=== PATIENT | male | born 1975 | race Caucasian/White ===

== ENCOUNTER 2017-02-28 10:47 | Inpatient (IN) | payer MEDICAID, OTHER ==
[~2017-02-28] VITALS: Ht 172.7 cm; Wt 119.6 kg
[2017-02-28] MEDS ORDERED: CLON.2 PO (11:27)
[2017-02-28] MEDS ORDERED: BUSP15 PO (11:27)
[2017-02-28] MEDS ORDERED: METO25 PO (11:27)
[2017-02-28] MEDS ORDERED: QUET100T PO (11:27)
[2017-02-28] MEDS ORDERED: AMLO-511 PO (11:27)
[2017-02-28 11:42] LABS: AMPHET/METH SCREEN,URINE NEGATIVE (NEGATIVE); BARBITURATE SCREEN, URINE NEGATIVE (NEGATIVE); BENZODIAZEPINES SCREEN,URINE NEGATIVE (NEGATIVE); CANNABINOID SCREEN,URINE NEGATIVE (NEGATIVE); COCAINE SCREEN,URINE NEGATIVE (NEGATIVE); METHADONE SCREEN, URINE POSITIVE (NEGATIVE); OPIATE SCREEN,URINE NEGATIVE (NEGATIVE); PHENCYCLIDINE SCREEN,URINE NEGATIVE (NEGATIVE)
[2017-02-28 12:20] LABS: ANION GAP 5 mmol/L (8-16); CALCIUM, TOTAL 8.8 mg/dL (8.8-10.5); CARBON DIOXIDE 28 mmol/L (22-29); CHLORIDE 106 mmol/L (98-107); CREATININE 0.77 mg/dL (0.60-1.30); GLOMERULAR FILTR. RATE CALC > 60 mL/min (>60); GLUCOSE,RANDOM 93 mg/dL (70-110); POTASSIUM 3.7 mmol/L (3.5-5.1); SODIUM SERUM 139 mmol/L (136-145); UREA NITROGEN, BLOOD 8 mg/dL (7-18)
[2017-02-28 12:23] LABS: BASOPHILS % (AUTO) 0.5 % (0.0-2.0); EOSINOPHILS % (AUTO) 2.3 % (1.0-6.0); HEMATOCRIT 39.3 % (41-53); HEMOGLOBIN 13.2 g/dL (13.5-17.5); LYMPHOCYTES # (AUTO) 2.5 K/uL (1.0-4.8); LYMPHOCYTES % (AUTO) 27.5 % (22.0-44.0); MEAN CORPUSCULAR HEMOGLOBIN 29.3 pg (26.0-34.0); MEAN CORPUSCULAR HGB CONC 33.5 G/dL (31.0-37.0); MEAN CORPUSCULAR VOLUME 87 fL (80-100); MONOCYTES # (AUTO) 0.5 K/uL (0.1-1.0); MONOCYTES % (AUTO) 5.6 % (2.0-9.0); NEUTROPHILS # (AUTO) 5.9 K/uL (1.8-7.7); NEUTROPHILS % (AUTO) 64.1 % (40.0-70.0); PLATELET COUNT (AUTO) 337 K/uL (150-450); RED BLOOD CELL COUNT(AUTO) 4.49 MIL/uL (4.50-5.90); RED CELL DISTRIBUTION WIDTH 15.4 % (11.5-14.5)
[2017-02-28 12:25] LABS: ALANINE AMINOTRANSFERASE 82 U/L (12-78); ALBUMIN 3.5 g/dL (3.4-5.0); ALKALINE PHOSPHATASE 70 U/L (46-116); ASPARTATE AMINOTRANSFERASE 94 U/L (15-37); BILIRUBIN,TOTAL 0.2 mg/dL (0.1-1.0); TOTAL PROTEIN, SERUM 6.8 g/dL (6.4-8.2)
[2017-02-28 12:26] LABS: SALICYLATE 1.2 mg/dL (2.8-20.0)
[2017-02-28 12:29] LABS: ACETAMINOPHEN < 2 mcg/mL (10-30)
[2017-02-28] MEDS ORDERED: HALOPERIDOL 5 MG TABLET PO ONE (13:15)
[2017-02-28] MEDS ORDERED: LORazepam 1 MG TABLET PO ONE (13:15)
[2017-02-28] MEDS ORDERED: LORazepam 2 MG/ML VIAL IM ONE (13:30)
[2017-02-28] MEDS ORDERED: HALOPERIDOL LACTATE 5 MG/ML VIAL IM ONE (13:30)
[2017-02-28] MEDS ORDERED: DiphenhydrAMINE HCL 50 MG/ML VIAL IM ONE (13:30)
[2017-02-28] MEDS ORDERED: HALOPERIDOL 5 MG TABLET PO PRN (14:45)
[2017-02-28 15:38] LABS: CHOL/HDL RATIO 4.5 (4.2-7.3); CHOLESTEROL 170 mg/dL (131-200); FREE T4 (FREE THYROXINE) 1.28 ng/dL (0.76-1.46); HDL CHOLESTEROL 38 mg/dL (40-60); LDL CHOL (CALC.) 111 mg/dL (0-130); THYROID STIMULATING HORMONE 0.89 uIU/mL (0.36-3.74); TRIGLYCERIDES 107 mg/dL (15-150)
[2017-02-28 16:21] VITALS: BP 112/79
[2017-02-28] MEDS ORDERED: INFLUENZA VIRUS VACCINE QVS 2017-18 (3YR+)/PF 60 MCG/0.5 ML SYRINGE IM ONE (17:30)
[2017-02-28] MEDS ORDERED: CloNIDine HCL 0.1 MG TABLET PO PRN (17:30)
[2017-02-28] MEDS ORDERED: PNEUMOCOCCAL VACCINE POLYVALENT 0.5 ML VIAL [PPSV23] IM ONE (17:30)
[2017-02-28] MEDS: ZOLPIDEM TARTRATE 10 MG TABLET PO PRN (20:28)
[2017-02-28] MEDS: LORazepam 2 MG TABLET PO PRN (20:28)
[2017-03-01 06:21] VITALS: BP 118/76
[2017-03-01 08:48] VITALS: BP 122/80
[2017-03-01] MEDS: METOPROLOL TARTRATE 25 MG TABLET PO SCH ×2 (10:05→16:34)
[2017-03-01] MEDS: AmLODIPine BESYLATE 5 MG TABLET PO SCH (10:09)
[2017-03-01 16:00] VITALS: BP 124/66
[2017-03-01] MEDS: QUEtiapine FUMARATE 200 MG TABLET PO SCH (20:15)
[2017-03-01] MEDS: ZOLPIDEM TARTRATE 10 MG TABLET PO PRN (21:55)
[2017-03-02 01:23] VITALS: BP 132/83
[2017-03-02 08:24] VITALS: BP 134/86
[2017-03-02] MEDS: METOPROLOL TARTRATE 25 MG TABLET PO SCH ×2 (09:03→16:15)
[2017-03-02] MEDS: LORazepam 2 MG TABLET PO PRN ×3 (09:04→21:15)
[2017-03-02] MEDS: AmLODIPine BESYLATE 5 MG TABLET PO SCH (09:04)
[2017-03-02 09:29] LABS: ALANINE AMINOTRANSFERASE 91 U/L (12-78); ALKALINE PHOSPHATASE 80 U/L (46-116); ANION GAP 10 mmol/L (8-16); ASPARTATE AMINOTRANSFERASE 51 U/L (15-37); BILIRUBIN,TOTAL 0.3 mg/dL (0.1-1.0); CALCIUM, TOTAL 9.3 mg/dL (8.8-10.5); CARBON DIOXIDE 27 mmol/L (22-29); CHLORIDE 103 mmol/L (98-107); CREATININE 0.83 mg/dL (0.60-1.30); GLOMERULAR FILTR. RATE CALC > 60 mL/min (>60); GLUCOSE,RANDOM 81 mg/dL (70-110); POTASSIUM 3.9 mmol/L (3.5-5.1); SODIUM SERUM 140 mmol/L (136-145); TOTAL PROTEIN, SERUM 7.3 g/dL (6.4-8.2); UREA NITROGEN, BLOOD 11 mg/dL (7-18)
[2017-03-02 16:00] VITALS: BP 124/77
[2017-03-02] MEDS: QUEtiapine FUMARATE 200 MG TABLET PO SCH (20:31)
[2017-03-02] MEDS: ZOLPIDEM TARTRATE 10 MG TABLET PO PRN (21:14)
[2017-03-03 04:01] VITALS: BP 113/89
[2017-03-03 08:26] VITALS: BP 139/60
[2017-03-03] MEDS: METOPROLOL TARTRATE 25 MG TABLET PO SCH (08:32)
[2017-03-03] MEDS: AmLODIPine BESYLATE 5 MG TABLET PO SCH (08:32)
[2017-03-03] MEDS: LORazepam 2 MG TABLET PO PRN (08:32)
== END 2017-03-03 15:55 | disposition home or self-care (01) | DRG 751 ==
LOC: EMS 10:52 → B3A 15:02
PROVIDERS: ADMIT Psychiatry & Neurology Child & Adolescent Psychiatry; ATTEND Psychiatry & Neurology Child & Adolescent Psychiatry
PROC: 3E0234Z Introduction of Serum, Toxoid and Vaccine into Muscle, Percutaneous Approach (ICD-10-PCS; principal; 2017-03-01)
DX: F29 Unspecified psychosis not due to a substance or known physiological condition (principal); I10 Essential (primary) hypertension; D64.9 Anemia, unspecified; F41.9 Anxiety disorder, unspecified; F32.9 Major depressive disorder, single episode, unspecified; F11.90 Opioid use, unspecified, uncomplicated; R79.89 Other specified abnormal findings of blood chemistry; Z23 Encounter for immunization; Z91.018 Allergy to other foods; Z87.891 Personal history of nicotine dependence; Z82.49 Family history of ischemic heart disease and other diseases of the circulatory system; Z82.3 Family history of stroke
CPT/HCPCS: 70450; 80074; 84439; 84443; 90471; 96372; 99285; G0480; G0481; J1200; J1630; J2060